=== PATIENT | female | born 1995 | race African-American/Black ===

== ENCOUNTER 2016-09-26 16:00 | Emergency (ER) | payer OTHER ==
[~2016-09-26] VITALS: Ht 157.5 cm; Wt 85.0 kg
[2016-09-26 16:02] VITALS: BP 112/56; PULSE 84; RESP 12; TEMP 97.5; O2SAT 99
--- NOTE | 2016-09-26 16:46 | PD ---
HPI Chief Complaint: Injury Time Seen by Provider: 16:46 Travel History International Travel<30 days: No Contact w/Intl Traveler<30days: No Traveled to known affect area: No History of Present Illness HPI 21-year-old female presents to the emergency Department with complaint of left knee pain times one week after hitting it on a desk. She says she had a pretty hard and heard a pop. She has been ambulatory on the knee. Pain is aggravated with bending the knee. She has not taken any medications or tried any treatments to be her symptoms. She denies paresthesias, loss of sensation, decreased range of motion, decreased strength to the affected extremity. Denies fever, chills, nausea, vomiting. Denies significant past medical history. No known allergies. No other modifying factors or associated signs and symptoms. PFSH Past Medical History Medical History: Denies Significant Hx ?: Not Social History Tobacco Use: No Allergies-Medications (Allergen,Severity, Reaction): Coded Allergies: No Known Allergies (Unverified , 11/04/15) Reported Meds & Prescriptions Reported Meds & Active Scripts Active Ibuprofen 800 Mg Tab 800 Mg PO Q6HR PRN Review of Systems Except as stated in HPI: all other systems reviewed are Neg Physical Exam Narrative GENERAL: Well-nourished, well-developed female patient, in no acute distress; afebrile, nontoxic-appearing SKIN: Warm and dry. HEAD: Atraumatic. Normocephalic. EYES: Pupils equal and round. No scleral icterus. No injection or drainage. ENT: Mucosa pink and moist. Airway patent. NECK: Trachea midline. CARDIOVASCULAR: Regular rate. RESPIRATORY: No accessory muscle use. MUSCULOSKELETAL: Left knee is nonedematous and nonerythematous; full range of motion in flexion to 90; no obvious deformity; point tenderness to the medial aspect. Left lower extreme is supple and non-tense with 2+ pedal pulses and sensory intact without erythema or edema. Knee joints stable. Negative drawer test. NEUROLOGICAL: Awake and alert. Oriented 3. No obvious cranial nerve deficits. Motor grossly within normal limits. Normal speech. PSYCHIATRIC: Appropriate mood and affect; insight and judgment normal. Data Data Last Documented VS Vital Signs Date Time Temp Pulse Resp B/P Pulse Ox O2 Delivery O2 Flow Rate FiO2 09/26/16 16:02 97.5 84 12 112/56 99 Room Air Orders Knee, Complete (4vws) (09/26/16 16:46) [facility] Medical Decision Making Medical Screen Exam Complete: Yes Emergency Medical Condition: Yes Medical Record Reviewed: Yes Differential Diagnosis Knee contusion, knee sprain, knee fracture Narrative Course 21-year-old female with left knee injury. I offered the patient a nonnarcotic for pain and she declined at this time. Left knee x-ray ordered. 1726: Left knee x-ray concludes no acute findings. I offered the patient crutches for support and she declined this time. Ibuprofen prescribed for home. Instructed patient to follow up outpatient if symptoms persist greater than 10-14 days from date of injury. Patient is medically cleared and stable for discharge. Discussed reasons to return to the emergency department. Instructed patient to follow up with primary care provider. Patient agrees with treatment plan. The patients vital signs are stable and the patient is stable for outpatient follow-up and treatment. Patient discharged home, stable and in no acute distress. Diagnosis Primary Impression: Contusion of left knee Qualified Code: S80.02XA - Contusion of left knee, initial encounter Referrals: Primary Care Physician Patient Instructions: Contusion in Adults (ED), General Instructions Departure Forms: Tests/Procedures, Work Release Enter return to work date: Sep 27, 2016 Additional Instructions: Tylenol or ibuprofen as needed and as directed to reduce pain and inflammation Rest, ice, compress, and elevate extremity to decrease pain and inflammation knee brace for support Crutches for support Avoid aggravating activity; increase activity as tolerated Follow-up with primary care provider Return to the emergency department immediately with worsening symptoms Med/Other Pt SpecificInfo: Prescription(s) given Scripts Ibuprofen 800 Mg Utx384 Mg PO Q6HR PRN (PAIN) #30 TAB Ref 0 Prov:Rimma Josue 09/26/16 Disposition: 01 DISCHARGE HOME Condition: Stable Rimma Josue Sep 26, 2016 16:46
--- NOTE | 2016-09-26 17:12 | RADRPT ---
EXAM DATE/TIME: 09/26/2016 17:03 [facility] COMPARISON: No previous studies available for comparison. INDICATIONS : Left knee pain after hitting knee on a dresser. MEDICAL HISTORY : None. SURGICAL HISTORY : None. ENCOUNTER: Initial ACUITY: 1 week PAIN SCORE: 6/10 LOCATION: Left medial knee. FINDINGS: Four view examination of the left knee demonstrates no evidence of fracture or dislocation. Bony min eralization is normal. The articular surfaces are intact. The suprapatellar soft tissues have a nor mal configuration. CONCLUSION: No acute disease. Troy Antonio MD on September 26, 2016 at 17:08 Board Certified Radiologist. This report was verified electronically.
[2016-09-26] MEDS ORDERED: IBUP800T23 PO (17:27)
== END 2016-09-26 17:42 | disposition home or self-care (01) ==
LOC: NEPB 16:00
DX: S80.02XA Contusion of left knee, initial encounter (principal); W22.03XA Walked into furniture, initial encounter
CPT/HCPCS: 73564; 99283

== ENCOUNTER 2016-10-17 16:05 | Emergency (ER) | payer OTHER ==
[~2016-10-17 16:05] MED LIST: IBUP800T23 PO
[2016-10-17 16:07] VITALS: BP 113/73; PULSE 94; RESP 12; TEMP 98.1; O2SAT 98
[2016-10-17 19:31] VITALS: TEMP 98.2
--- NOTE | 2016-10-17 20:07 | PD ---
HPI Chief Complaint: GI Complaint Time Seen by Provider: 20:06 Travel History International Travel<30 days: No Contact w/Intl Traveler<30days: No Traveled to known affect area: No History of Present Illness HPI 21-year-old female with no significant medical history presents to emergency department for evaluation of one episode of vomiting at 4 AM this morning. Patient states that she has felt nauseous and had body aches since then. No fever or chills. No diarrhea. No chest or tightness. No difficulty breathing. States there is no possibility of . No urinary symptoms. No other symptoms to report. PFSH Past Medical History Medical History: Denies Significant Hx ?: Not LMP: ENDED YESTERDAY Social History Alcohol Use: No Tobacco Use: No Allergies-Medications (Allergen,Severity, Reaction): Coded Allergies: No Known Allergies (Unverified , 10/17/16) Reported Meds & Prescriptions Reported Meds & Active Scripts Active Zofran Odt (Ondansetron Odt) 4 Mg Tab 4 Mg SL Q6HR PRN Ibuprofen 800 Mg Tab 800 Mg PO Q6HR PRN Review of Systems Except as stated in HPI: all other systems reviewed are Neg Physical Exam Narrative GENERAL: Well-nourished female patient, ambulatory and in no acute distress SKIN: Warm and dry. HEAD: Atraumatic. Normocephalic. EYES: Pupils equal and round. No scleral icterus. No injection or drainage. ENT: No nasal bleeding or discharge. Mucous membranes pink and moist. NECK: Trachea midline. No JVD. CARDIOVASCULAR: Regular rate and rhythm. No murmur appreciated. RESPIRATORY: No accessory muscle use. Clear to auscultation. Breath sounds equal bilaterally. GASTROINTESTINAL: Abdomen soft, non-tender, nondistended. Hepatic and splenic margins not palpable. MUSCULOSKELETAL: No obvious deformities. No clubbing. No cyanosis. No edema. NEUROLOGICAL: Awake and alert. No obvious cranial nerve deficits. Motor grossly within normal limits. Normal speech. PSYCHIATRIC: Appropriate mood and affect; insight and judgment normal. Data Data Last Documented VS Vital Signs Date Time Temp Pulse Resp B/P Pulse Ox O2 Delivery O2 Flow Rate FiO2 10/17/16 19:31 98.2 10/17/16 16:07 94 12 113/73 98 Room Air Orders Influenzae A/B Antigen (10/17/16 20:05) Ibuprofen (Motrin) (10/17/16 20:15) Urinalysis - C+S If Indicated (10/17/16 20:05) Ed Urine Pregnancytest Poc (10/17/16 20:05) Ondansetron Odt (Zofran Odt) (10/17/16 20:15) Labs Laboratory Tests Test 10/17/16 21:20 Urine Color YELLOW Urine Turbidity HAZY Urine pH 6.5 Urine Specific [place] 1.020 Urine Protein NEG mg/dL Urine Glucose (UA) NEG mg/dL Urine Ketones NEG mg/dL Urine Occult Blood NEG Urine Nitrite NEG Urine Bilirubin NEG Urine Urobilinogen 2.0 MG/DL Urine Leukocyte Esterase NEG Urine RBC LESS THAN 1 /hpf Urine WBC 2 /hpf Urine Squamous Epithelial 8 /hpf Cells Microscopic Urinalysis Comment CULT NOT INDICATED MDM Medical Decision Making Medical Screen Exam Complete: Yes Emergency Medical Condition: Yes Medical Record Reviewed: Yes Differential Diagnosis Gastritis versus influenza versus viral syndrome versus myalgias Narrative Course 21 year-old female presents to emergency room for evaluation. Patient appears without distress. She has not vomited since this morning at 4 AM. This is in several hours. Her vital signs are stable. Influenza is negative. Urinalysis is without acute concern. Patient is discharged home, corrections counselor on symptomatic treatment. He agrees to return immediately with any acute worsening symptoms. Diagnosis Primary Impression: Viral illness Additional Impression: Nausea Referrals: Primary Care Physician Patient Instructions: General Instructions, Influenza (ED) Additional Instructions: Rest Maintain adequate oral hydration Return to ED acute worsening of symptoms Med/Other Pt SpecificInfo: Prescription(s) given Scripts Ondansetron Odt (Zofran Odt)4 Mg Tab4 Mg SL Q6HR PRN (Nausea/Vomiting) #15 TAB Ref 0 Prov:Cecy Galan 10/17/16 Disposition: 01 DISCHARGE HOME Condition: Stable Cecy Galan Oct 17, 2016 20:07
[2016-10-17] MEDS ORDERED: ONDANSETRON ODT 4 MG TAB PO ONE (20:15)
[2016-10-17] MEDS ORDERED: IBUPROFEN 800 MG TAB PO ONE (20:15)
[2016-10-17 22:05] LABS: BLOOD, URINE NEG (NEG); COMMENT (UR) CULT NOT INDICATED; CULTURE IF INDICATED CULT NOT INDICATED; GLUCOSE,URINE NEG (NEG); KETONE, URINE NEG (NEG); NITRITE,URINE NEG (NEG); PH, URINE 6.5 (5.0-8.5); SQUAMOUS EPITHELIAL CELL URINE 8 /hpf (0-5); URINE COLOR YELLOW (YELLW/STRAW)
[2016-10-17] MEDS ORDERED: ZOFR4TAB3 SL (22:21)
== END 2016-10-17 22:50 | disposition home or self-care (01) ==
LOC: NEPB 16:05
DX: B34.9 Viral infection, unspecified (principal)
CPT/HCPCS: 81001; 87804; 99283